=== PATIENT | female | born 1950 | race Caucasian/White ===

== ENCOUNTER 2021-05-20 08:21 | Emergency (ER) | payer MEDICARE, OTHER ==
[~2021-05-20] VITALS: Ht 157 cm; Wt 55.7 kg
[~2021-05-20 08:21] MED LIST: ALEN70TA47 PO; DAPS25TA2 PO; FLUO20CA25 PO; LEVO500T69 PO; LVT.05T PO; SULF1TAB38 PO
--- NOTE | 2021-05-20 09:02 | Diagnostic Imaging Report ---
Indication: Right foot injury with pain and swelling. Comparison: None. Discussion: Three views of the right foot were obtained. There is a subacute appearing transverse fracture involving the proximal right 5th metatarsal. There is some periosteal reaction noted in this region. No bridging callus formation. No other fracture or dislocation identified. Alignment is anatomic. Soft tissues are unremarkable. No foreign body. Impression: 1. Nondisplaced transverse fracture involving the base of the right 5th metatarsal, possibly subacute. Dictated by: Dictated on workstation # [id number]
--- NOTE | 2021-05-20 09:34 | ED Lower Extremity ---
General Chief Complaint: Lower Extremity Stated Complaint: R FOOT INJ Nursing Triage Note: PT PRESENTS TO ED FOR RT FOOT PAIN THAT STARTED YESTERDAY. PER PT SHE WAS DOING ALLEN BALLS INTO THE POOL BUT DENIES INJURY. PT BROUGHT TO ROOM 06 VIA WC. Source: patient Exam Limitations: no limitations History of Present Illness Date Seen by Provider: May 20, 2021 Time Seen by Provider: 08:35 Initial Comments This 70-year-old woman presents to the emergency room with right lateral foot pain that developed suddenly after she ran and jumped into the pool yesterday evening. She has a known recent stress fracture of the right fifth metatarsal. This was being followed by Dr. Schwarz. She has had significant difficulty with bearing weight since the injury yesterday. Allergies and Home Medications Allergies Coded Allergies: No Known Drug Allergies (Unverified , 05/24/15) Home Medications Alendronate Sodium 70 Mg Tablet, 70 MG PO UD, (Reported) TAKES ON FRIDAY Amlodipine Besylate 5 Mg Tablet, 5 MG PO DAILY Prescribed by: LUIS A SHAHID on 05/20/21 1736 Levofloxacin 500 Mg Tab, 1 EACH PO DAILY Prescribed by: MARYCRUZ WALTER on 05/28/15 1152 Levothyroxine Sodium 50 Mcg Tab, 50 MCG PO DAILY@0630 Prescribed by: MARYCRUZ WALTER on 05/28/15 1152 Patient Home Medication List Home Medication List Reviewed: Yes Review of Systems Constitutional: no symptoms reported EENTM: no symptoms reported Respiratory: no symptoms reported Cardiovascular: no symptoms reported Gastrointestinal: no symptoms reported Genitourinary: no symptoms reported Musculoskeletal: see HPI Skin: no symptoms reported Psychiatric/Neurological: No Symptoms Reported Past Hefvove-Wxxarg-Jnjuex Hx Patient Social History Tobacco Use?: No Smoking Status: Never a Smoker Substance use?: No Alcohol Use?: Yes Alcohol type: Wine Alcohol Frequency: Once in a while Pt feels they are or have been: No Immunizations Up To Date Tetanus Booster (TDap): Less than 5yrs First/Initial COVID19 Vaccinat: Second COVID19 Vaccination Rosas: 12/14/2020 COVID19 Vaccine [employer] 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[employer]ia Past Medical History Surgeries: No Respiratory: Yes Pneumonia Cardiac: No Neurological: No : No Reproductive Disorders: No Female Reproductive Disorders: Denies Sexually Transmitted Disease: No HIV/AIDS: No Gastrointestinal: No Musculoskeletal: Yes (Stress fracture right foot, history of vertebral fractures) Endocrine: Yes Hypothyroidsim Loss of Vision: Denies Hearing Impairment: Denies Cancer: No Psychosocial: No Family Medical History Arthritis Asthma Completed stroke PULMONARY FIBROSIS No Pertinent Family Hx Physical Exam Vital Signs Vital Signs - First Documented 05/20/21 05/20/21 08:35 10:14 Temp 35.9 Pulse 70 Resp 18 B/P (MAP) 190/94 (126) Pulse Ox 100 O2 Delivery Room Air Capillary Refill : Less Than 3 Seconds Height, Weight, BMI Height: 5'5.00" Weight: 125lbs. 6.0oz. [id number]; 22.00 BMI Method:Stated General Appearance: WD/WN, no apparent distress HEENT: normal ENT inspection Cardiovascular: regular rate, rhythm, no edema Respiratory: normal breath sounds, no respiratory distress Ankles: right ankle non-tender, right ankle normal inspection, right ankle normal range of motion, right ankle no evidence of injury Feet: right foot normal range of motion, right foot bone tenderness, right foot swelling, right foot other (Bony tenderness and swelling along the lateral aspect of the fifth metatarsal) Neurologic/Tendon: normal sensation, normal motor functions, normal tendon functions Neurologic/Psychiatric: pediatric nephrologist II-XII nml as tested, no motor/sensory deficits, alert, normal mood/affect, oriented x 3 Skin: normal color, warm/dry Progress/Results/Core Measures Results/Orders My Orders Orders - LUIS A MEYERS MD Foot, Right, 3 View (05/20/21 08:41) Crutches (05/20/21 09:31) Steplite (05/20/21 09:31) Amlodipine Tablet (Norvasc Tablet) (05/20/21 10:15) Medications Given in ED Current Medications Medications Dose Ordered Sig/Kar Route Start Time Stop Time Status Last Admin Dose Admin Amlodipine Besylate 5 mg ONCE ONCE PO 05/20/21 10:15 05/20/21 10:16 DC 05/20/21 10:14 5 MG Vital Signs/I&O 05/20/21 05/20/21 08:35 10:14 Temp 35.9 35.9 Pulse 70 69 Resp 18 16 B/P (MAP) 190/94 (126) 203/104 Pulse Ox 100 O2 Delivery Room Air Room Air Blood Pressure Mean: 126 Progress Progress Note : Progress Note Foot x-ray revealed a subacute fracture of the fifth metatarsal. This may have been a worsening of the pre-existing stress fracture when she ran onto the pool deck. She was fitted with a stoplight boot and provided crutches. Prior to discharge she was noted to have persistent hypertension. We discussed options for working this up and treating it. Patient wished to take a dose of amlodipine and call back with her blood pressure. It is uncertain to what degree her blood pressure is related to pain and white coat syndrome. She did call back later and reported her systolic blood pressure was 155. She was then prescribed amlodipine and instructed to take it until follow-up with Dr. Simmons. Diagnostic Imaging Diagonstic Imaging: Xray Plain Films/CT/US/NM/MRI: other (Right foot) Comments NAME: DAMIEN VALLE MED REC#: [id number] PT STATUS: DEP ER : 1950 PHYSICIAN: LUIS A MEYERS MD ADMIT DATE: 05/20/21/ER Signed Date of Exam:05/20/21 FOOT, RIGHT, 3 VIEW Indication: Right foot injury with pain and swelling. Comparison: None. Discussion: Three views of the right foot were obtained. There is a subacute appearing transverse fracture involving the proximal right 5th metatarsal. There is some periosteal reaction noted in this region. No bridging callus formation. No other fracture or dislocation identified. Alignment is anatomic. Soft tissues are unremarkable. No foreign body. Impression: 1. Nondisplaced transverse fracture involving the base of the right 5th metatarsal, possibly subacute. Dictated by: Dictated on workstation # [id number] Dict: 05/20/21 0859 Trans: 05/20/21 1535 NESHA [id number] Interpreted by: KYLE GARVEY MD Electronically signed by: KYLE GARVEY MD 05/20/21 1535 Departure Impression Primary Impression: Fracture of 5th metatarsal Qualified Codes: S92.354A - Nondisplaced fracture of fifth metatarsal bone, right foot, initial encounter for closed fracture Additional Impression: Episode of hypertension Disposition: 01 HOME, SELF-CARE Condition: Stable Departure-Patient Inst. Decision time for Depature: 09:33 Referrals: FIDENCIO SIMMONS DO (PCP/Family) Primary Care Physician Patient Instructions: Foot Fracture ED Add. Discharge Instructions: Use the boot whenever up and active. Use crutches so as to not bear full weight on the right foot. You may rest your right foot on the ground but do not bear full body weight. Follow-up with Dr. Schwarz as soon as possible. Please call on Friday to arrange follow-up. You may use Tylenol (acetaminophen) up to 1000 mg every 6 hours as needed for pain. Icing in 20-minute intervals and elevation may also help with pain. In regard to your high blood pressure, return home, take some Tylenol, and rest for about an hour. Recheck your blood pressure. If the top number of your blood pressure is over 160, please call Dr. Meyers in the ER. Call Dr. Simmons or stop by his clinic tomorrow for further instructions regarding your blood pressure and to recheck your blood pressure. Call with questions or concerns. Return to the ER if you have worsening symptoms. All discharge instructions reviewed with patient and/or family. Voiced understanding. Scripts Amlodipine Besylate (Norvasc) 5 Mg Tablet 5 MG PO DAILY, #30 TAB Prov: LUIS A MEYERS MD 05/20/21 Copy Copies To 1: FIDENCIO SIMMONS DO Copies To 2: KYLE SCHWARZ DPM, JOSHUA T MD May 20, 2021 09:34
[2021-05-20 10:14] VITALS: BP 203/104
[2021-05-20] MEDS ORDERED: amLODIPine 5 MG (NORVASC) TAB PO ONE (10:15)
[2021-05-20] MEDS ORDERED: AMLO5TAB4 PO (17:36)
== END 2021-05-20 10:14 | disposition home or self-care (01) ==
LOC: EDUNIT# 08:21 → ER 08:22
DX: S92.354A Nondisplaced fracture of fifth metatarsal bone, right foot, initial encounter for closed fracture (principal); I10 Essential (primary) hypertension; E03.9 Hypothyroidism, unspecified; Z79.890 Hormone replacement therapy; Z79.899 Other long term (current) drug therapy; W16.92XA Jumping or diving into unspecified water causing other injury, initial encounter
CPT/HCPCS: 73630

== ENCOUNTER → 2022-10-16 | Outpatient (RCR) | payer MEDICARE, OTHER ==
[2022-10-03 09:50] VITALS: BP 137/71
[2022-10-09] MEDS: TOCILIZUMAB 162 MG/0.9 ML SQ SCH (09:16)
[2022-10-09 09:17] VITALS: BP 152/81
[~2022-10-16] MED LIST changes: +AMLO5TAB4 PO; +TOCILIZUMAB 162 MG/0.9 ML SQ SCH
[2022-10-16 10:21] VITALS: BP 135/78
[2022-10-16] MEDS: TOCILIZUMAB 162 MG/0.9 ML SQ SCH (10:29)
== END | disposition home or self-care (01) ==
LOC: SDC 10-03 09:21 → EDSTATUS 10-03 09:30 → SDC 10-09 08:51
PROVIDERS: ATTEND Internal Medicine
DX: M31.6 Other giant cell arteritis (principal)
CPT/HCPCS: 96372

== ENCOUNTER → 2022-10-23 | Outpatient (CLI) | payer MEDICARE, OTHER ==
[~2022-10-23] VITALS: Wt 61.4 kg
[2022-10-23 16:33] VITALS: BP 0/0
== END ==
LOC: SDC 15:36
PROVIDERS: ATTEND Internal Medicine
DX: M31.6 Other giant cell arteritis (principal)
CPT/HCPCS: 96372

== ENCOUNTER 2022-11-20 11:49 | Outpatient (CLI) | payer MEDICARE, OTHER ==
[~2022-11-20] VITALS: Wt 61.4 kg
[~2022-11-20 11:49] MED LIST changes: -TOCILIZUMAB 162 MG/0.9 ML SQ SCH
[2022-11-20] MEDS ORDERED: TOCILIZUMAB 162 MG/0.9 ML SQ SCH (12:00)
[2022-11-20 12:15] VITALS: BP 161/79
== END 2022-11-20 12:35 ==
LOC: SDC 11:49
PROVIDERS: ATTEND Internal Medicine
DX: M31.6 Other giant cell arteritis (principal)
CPT/HCPCS: 96372

== ENCOUNTER → 2023-03-11 | Outpatient (CLI) | payer MEDICARE, OTHER ==
--- NOTE | 2023-03-11 09:07 | Diagnostic Imaging Report ---
INDICATION: Postmenopausal state. COMPARISON: None available, baseline exam. FINDINGS: AP Spine L1-L4: [BMD (g/cm2): 1.209] [T-Score: 0.1] [Z-Score: 2.0] [BMD Previous: na] [BMD % Change: na] LT Hip Neck: [BMD (g/cm2): 0.733] [T-Score: -2.2] [Z-Score: -0.2] LT Hip Total: [BMD (g/cm2):0.914] [T-Score:-0.7] [Z-Score: 1.0] [BMD Previous: na] [BMD % Change: na] RT Hip Neck: [BMD (g/cm2):0.739] [T-Score:-2.2] [Z-Score:-0.2] RT Hip Total: [BMD (g/cm2):0.885] [T-score:-1.0] [Z-Score:0.8] [BMD Previous:na] [BMD % Change:na] *Indicates significant change from prior examination based on 95% confidence level. World Health Organization criteria for BMD interpretation classify patients as Normal (T-score at or above -1.0), Osteopenic (T-score between -1.0 and -2.5) or Osteoporotic (T-score at or below -2.5). LIMITATIONS AND MODIFICATION: None. FRACTURE RISK (FRAX SCORE): The ten year probability of (%): Major Osteoporotic Fracture: [16.9] Hip Fracture: [4.7] IMPRESSION: 1. Osteopenia (Low bone mass). 2. Baseline examination. 3. See below National Osteoporosis Foundation guidelines on when to potentially initiate pharmacologic therapy. Based on the National Osteoporosis Foundation Guidelines, pharmacologic treatment should be initiated in any of the following, unless clinical conditions suggest otherwise: * Any patient with prior fragility fracture of the hip or vertebrae. A spine fracture indicates 5X risk for subsequent spine fracture and 2X risk for subsequent hip fracture. * Osteoporosis (T-score <-2.5). * Postmenopausal women and men age 50 and older with low bone mass/osteopenia (T-score between -1.0 and -2.5) by DXA and 10-year major osteoporotic fracture greater than 20% or a 10-year probability of hip fracture greater than 3%. These fracture risks are supplied above in the FRAX score, if applicable. * Clinician judgement and/or patient preferences may indicate treatment for people with 10-year fracture probabilities above or below these levels. Dictated by: Dictated on workstation # [id number]
== END ==
LOC: RAD 08:25
PROVIDERS: ATTEND Internal Medicine
DX: M81.0 Age-related osteoporosis without current pathological fracture (principal); M85.80 Other specified disorders of bone density and structure, unspecified site; Z78.0 Asymptomatic menopausal state
CPT/HCPCS: 77080